=== PATIENT | female | born 1930 | race American Indian/Alaskan Native ===

== ENCOUNTER 2017-04-22 10:40 | Emergency (ER) | payer MEDICARE ==
[2017-04-22 11:08] VITALS: BP 165/62
[2017-04-22] MEDS ORDERED: FLEXERIL PO ONE (13:38)
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
--- NOTE | 2017-04-22 14:37 | XRay Report ---
RIGHT SHOULDER, 3 VIEWS: HISTORY: right shoulder pain. Mild osteopenia is evident. Mild osteoarthritic changes are identified at the right shoulder. No evidence for fracture, dislocation, ligamentous injury or bone lesion. The soft tissues are within normal limits. IMPRESSION: Osteopenia. Osteoarthritis. No acute process.
--- NOTE | 2017-04-22 14:38 | XRay Report ---
RIGHT ELBOW, 3 views: HISTORY: right elbow pain. Mild osteopenia. The bony architecture is intact without evidence of fracture or dislocation. No significant soft tissue abnormality is seen. IMPRESSION: Mild osteopenia. No acute injury is appreciated.
== END 2017-04-22 15:24 | disposition home or self-care (01) ==
LOC: ED 10:40
DX: M25.511 Pain in right shoulder (principal); M85.811 Other specified disorders of bone density and structure, right shoulder; W01.0XXA Fall on same level from slipping, tripping and stumbling without subsequent striking against object, initial encounter; Y93.89 Activity, other specified; Y92.89 Other specified places as the place of occurrence of the external cause; Y99.8 Other external cause status
CPT/HCPCS: 99283

== ENCOUNTER 2018-07-10 20:17 | Emergency (ER) | payer MEDICARE ==
[~2018-07-10 20:17] MED LIST: ADRENALIN ONE; ATROPINE 0.1% (CARDIAC) ONE
[2018-07-10] MEDS ORDERED: ADRENALIN 8 MG in NACL 0.9% 250ML 242 ML IV ONE (20:39)
[2018-07-10] MEDS ORDERED: NACL 0.9% 1000 ML 1,000 ML ONE (20:41)
--- NOTE | 2018-07-10 20:43 | Emergency Department Report ---
ED CPR HPI - General Stated Complaint: CARDIAC ARREST Time Seen by Provider: 07/10/18 20:17 Source: family, EMS Mode of arrival: Stretcher Limitations: Altered Mental Status, Physical Limitation - History of Present Illness Initial Comments: Patient is a 88-year-old female who presents emergency room and a cardiac arrest. This is a witnessed arrest by EMS. EMS was called to the residence for shortness of breath and EMS found the patient be hypotensive and bradycardia. While in route to patient heart stopped and EMS started CPR. Patient was given multiple rounds of medication. Patient's initial complaint was shortness of breath 1 day. Patient was given albuterol for cirrhotic. Report received from EMS. No shocks delivered MD Complaint: stopped breathing Place: home Bystander CPR Performed: No AED Applied by Bystander/Industry Consultant: No Initial Findings in the Field: unresponsive ROSC in the Field: No Associated Injuries: No Associated Symptoms: shortness of breath Treatments Prior to Arrival: intubation, chest compressions, epinephrine mgs #, sodium bicarbonate - Related Data Previous Rx's Medication Instructions Recorded Last Taken Type Cyclobenzaprine [Flexeril] 10 mg PO QHS PRN #24 tablet 04/22/17 Unknown Rx Diclofenac (Nf) 50 mg PO BID #30 tablet. 04/22/17 Unknown Rx Allergies Allergy/AdvReac Type Severity Reaction Status Date / Time No Known Allergies Allergy Unverified 04/22/17 11:00 ED Review of Systems ROS: Stated complaint: CARDIAC ARREST Other details as noted in HPI Comment: Unobtainable due to pts medical conditions ED Past Medical Hx - Past Medical History Previous Medical History?: No - Surgical History Past Surgical History?: No - Family History Family history: no significant - Social History Smoking Status: Never Smoker Substance Use Type: Non Opiate Pain - Medications Home Medications: Home Medications Medication Instructions Recorded Confirmed Last Taken Type Cyclobenzaprine [Flexeril] 10 mg PO QHS PRN #24 tablet 04/22/[address] (Nf) 50 mg PO BID #30 tablet. 04/22/17 Unknown Rx ED Physical Exam - General Limitations: Altered Mental Status, Physical Limitation General appearance: obtunded - Head Head exam: Present: atraumatic, normocephalic - Eye Eye exam: Present: other - ENT ENT exam: Present: mucous membranes dry - Neck Neck exam: Present: normal inspection - Respiratory Respiratory exam: Present: rhonchi, other (ET tube placement verified. Bilater al lung sounds noted. No sounds over the epigastrium.) - Cardiovascular Cardiovascular Exam: Present: other - GI/Abdominal GI/Abdominal exam: Present: soft. Absent: distended - Rectal Rectal exam: Present: deferred - Extremities Exam Extremities exam: Present: normal inspection - Skin Skin exam: Present: warm, dry, intact, normal color. Absent: rash ED Course Vital Signs 07/10/18 07/10/18 07/10/18 20:22 20:30 20:45 Pulse Rate 131 H 120 H 31 L Respiratory 84 H 84 H 0 L Rate Blood Pressure 194/45 194/45 O2 Sat by Pulse 36 L Oximetry 07/10/18 21:00 Pulse Rate Respiratory 0 L Rate Blood Pressure 194/45 O2 Sat by Pulse Oximetry - Reevaluation(s) Reevaluation #1: Initial examination done. Patient in a full cardiac arrest. Report received from EMS. Patient intubated by EMS. Patient has multiple rounds of medications. Code ran in accordance with ACLS guidelines. See code note. ET tube placement verified. Bilateral breath sounds noted. 07/10/18 20:15 See code note. Patient was started on epinephrine drip. Multiple rounds of CPR and medications done. Patient had return of spontaneous circulation several times but rearrested. Resuscitation efforts terminated due to no cardiac activity. No pulses noted. Ultrasound used and no cardiac motion noted. No spontaneous respirations. 07/10/18 20:43 Family meeting done. Family support given. 07/10/18 20:45 Development meeting done with several other family members. Family support given 07/10/18 21:00 ED Medical Decision Making - EKG Data -: EKG Interpreted by Me EKG shows normal: sinus rhythm, axis, ST-T waves Rate: bradycardia - EKG Data Interpretation: other (third degree av block. rbbb. ) - Medical Decision Making Patient is a 88-year-old female that presents emergency room in full cardiac arrest. See code note. Code ran In accordance with ACLS guidelines. Patient had spontaneous return of circulation throughout code but Patient eventually rearrested and code was restarted. Patient was started on epinephrine drip during the code. Patient also had an EKG done which showed AV block. Resus citation efforts were terminated due to no signs of life. Ultrasound used to verify no cardiac motion. No spontaneous respirations or pulse noted. See code note. - Differential Diagnosis cardiac arrest. Critical Care Time: Yes Critical care attestation.: If time is entered above; I have spent that time in minutes in the direct care of this critically ill patient, excluding procedure time. Critical Care Time: 45 minutes ED Disposition Clinical Impression: Cardiac arrest Disposition: DC-20 Is pt being admited?: No Does the pt Need Aspirin: No Condition: Undetermined Time of Disposition: 00:16
[2018-07-10 21:11] VITALS: BP 194/45
[2018-07-10] MEDS ORDERED: NACL 0.9% 1000 ML 1,000 ML IV ONE (21:11)
== END 2018-07-11 00:34 ==
LOC: ED 20:17
DX: I46.9 Cardiac arrest, cause unspecified (principal)
CPT/HCPCS: 82962; 92950; 93005; 93010; 99291; J0171; J0461; J7030